=== PATIENT | male | born 1995 | race Caucasian/White ===

== ENCOUNTER 2019-08-18 23:13 | Emergency (ER) | payer BC, OTHER ==
[~2019-08-18] VITALS: Ht 177.8 cm; Wt 79.4 kg
[2019-08-18] MEDS ORDERED: NEOMY/BACITRA/POLYMYXIN B OINT UD PACKET TP ONE ×2 (23:42→23:45)
--- NOTE | 2019-08-19 02:00 | NUR ---
patient arousable to deep pain stimuli. when aroused, patient unable to state what he had taken prior to coming to the facility. patient was unsure and stated he took 4 pills of baclofen that are to be 20mg each. Patient continues to giggle and go back to sleep. patients VSS.
--- NOTE | 2019-08-19 04:01 | NUR ---
tried to wake patient up multiple times with ER physician and other medical staff members. patient remains to be lethargic and unable to wake up for a short period of time. will continue to monitor the patient.
--- NOTE | 2019-08-19 04:18 | NUR ---
tried to arouse the patient, patient arounsable to deep stimuli but falls back to sleep. patient unable to keep eyes open for longer then 2 seconds before falling asleep and snoring. patient urinated on himself. patient has been cleaned and changed.
--- NOTE | 2019-08-19 05:51 | NUR ---
attempted to wake patient up again, patient opens eye to painful stimuli. patient able to sit up in bed, however, patient still falls back to sleep.
--- NOTE | 2019-08-19 06:53 | NUR ---
Spoke with patient's mother over the phone, states she hasn't spoke to her son in years, the only thing he gave her was this [place]: [id number] [place] [address]. Requests if pt can be seen by a manager social media.
--- NOTE | 2019-08-19 09:32 | NUR ---
patient is more alert sitting up in bed was able to call for a friend to pick him up and take him home. Discussed discharged instructions with patient Redressed right knee dressing.
[2019-08-19 09:35] VITALS: BP 118/67
== END 2019-08-19 09:37 | disposition home or self-care (01) ==
LOC: ER 23:24
DX: L02.415 Cutaneous abscess of right lower limb (principal); L08.9 Local infection of the skin and subcutaneous tissue, unspecified; F41.9 Anxiety disorder, unspecified; F17.210 Nicotine dependence, cigarettes, uncomplicated; F15.10 Other stimulant abuse, uncomplicated
CPT/HCPCS: A4217; A4663